=== PATIENT | female | born 1955 | race Caucasian/White ===

== ENCOUNTER 2016-12-12 11:55 | Emergency (ER) | payer OTHER ==
--- NOTE | 2016-12-12 14:13 | ER Document Report ---
ED Medical Screen (RME) - General Chief Complaint: Abdominal Pain Stated Complaint: ABDOMINAL PAIN Time Seen by Provider: 12/12/16 14:10 - Related Data Allergies/Adverse Reactions: No Known Allergies Allergy (Unverified 12/12/16 14:41) Home Medications: Current Home Medications Atorvastatin Calcium 20 mg PO QHS 12/12/16 [History] Minerals [Multimineral Plus] 1 each PO DAILY 12/12/16 [History] Valsartan [Valsartan] 80 mg PO DAILY 12/12/16 [History] Past Medical History Renal/ Medical History: Denies: Hx Peritoneal Dialysis Physical Exam - Vital signs Vitals: Temp Pulse Resp BP Pulse Ox 98.2 F 72 16 134/84 H 96 12/12/16 12:12 12/12/16 12:12 12/12/16 12:12 12/12/16 12:12 12/12/16 12:12 Course - Re-evaluation Re-evalutation: 12/12/16 14:11 Presents emerged from chief complaint of right-sided abdominal pain. States onset yesterday is been gradual intermittent about 30 minutes on and then several hours for her to come back she was able to sleep last night. She denies any nausea vomiting diarrhea flank pain or urinary symptoms. She states that her gallbladder has been removed and her appendix she thinks was removed when she had a hysterectomy 20 years ago. She is a daily drinker and heavier on the weekends denies a history of pancreatitis. No chest pain cough or shortness of breath - Vital Signs Vital signs: Temp Pulse Resp BP Pulse Ox 98.1 F 64 16 151/83 H 94 12/12/16 18:55 12/12/16 18:55 12/12/16 18:55 12/12/16 18:55 12/12/16 18:55 - Laboratory Result Diagrams: 12/12/16 14:10 12/12/16 14:10 Laboratory results interpreted by me: 12/12/16 12/12/16 12/12/16 14:10 14:10 14:10 Hgb 16.4 H Hct 47.9 H Seg Neutrophils % 78.1 H BUN 6 L Urine Ketones 20 H Doctor's Discharge - Discharge Clinical Impression: Abdominal pain Condition: Stable Disposition: HOME, SELF-CARE Instructions: Abdominal Pain ([facility]) Additional Instructions: Abdominal Pain There are many causes of abdominal pain. Pain can mean a serious problem requiring surgery (such as appendicitis). It can also be an innocent problem that goes away on its own (such as a viral infection). Often, time must pass to determine the cause of pain. The physician does not feel that hospitalization is necessary, at present. Things may change within the next 24 hours. Call the doctor or come back for re- examination if any problems occur, such as: (1) Pain that becomes more severe, steady, or becomes concentrated in one specific area. Also, pain that is more severe with movement or coughing. (2) Vomiting that persists or becomes more frequent. (3) Blood in the vomitus, urine, or bowel movements. Blood in the stool may have a tarry or black appearance. (4) Shaking chills or fever greater than 100 degrees F. (5) The abdomen becomes more distended or swollen. (6) Bowel movements cease. (7) Failure to improve as expected. Referrals: AYUSH BARBA MD [Primary Care Provider] - (In 2-3 days return for increasing worsening or new symptoms)
[2016-12-12 14:50] LABS: ABSOLUTE LYMPHOCYTES (AUTO) 1.5 10^3/uL (0.5-4.7); ABSOLUTE MONOCYTES (AUTO) 0.5 10^3/uL (0.1-1.4); ABSOLUTE NEUT (AUTO) 7.5 10^3/uL (1.7-8.2); BASOPHILS % (AUTO) 0.4 % (0-2); EOSINOPHILS % (AUTO) 0.3 % (0-6); HEMATOCRIT 47.9 % (36.0-47.0); HEMOGLOBIN 16.4 g/dL (12.0-15.5); HGB HCT DIFFERENCE 1.3; LYMPHOCYTES % (AUTO) 15.6 % (13-45); MEAN CORPUSCULAR HEMOGLOBIN 31.5 pg (27.0-33.4); MEAN CORPUSCULAR HGB CONC 34.2 g/dL (32.0-36.0); MEAN CORPUSCULAR VOLUME 92 fl (80-97); MONOCYTES % (AUTO) 5.6 % (3-13); RED BLOOD COUNT 5.22 10^6/uL (3.72-5.28); RED CELL DISTRIBUTION WIDTH 13.9 % (11.5-14.0); SEGMENTED NEUTROPHILS % (AUTO) 78.1 % (42-78); WHITE BLOOD COUNT 9.5 10^3/uL (4.0-10.5)
[2016-12-12 14:52] LABS: APPEARANCE,URINE CLEAR; BILIRUBIN,URINE NEGATIVE (NEGATIVE); GLUCOSE, URINE NEGATIVE (NEGATIVE); KETONES,URINE 20 mg/dL (NEGATIVE); LEUKOCYTE ESTERASE,URINE NEGATIVE (NEGATIVE); NITRITE,URINE NEGATIVE (NEGATIVE); PROTEIN,URINE NEGATIVE (NEGATIVE); URINE SPECIFIC GRAVITY 1.003; UROBILINOGEN,URINE NEGATIVE mg/dL (<2.0)
[2016-12-12 15:09] LABS: ALANINE AMINOTRANSFERASE 31 U/L (9-52); ALBUMIN 4.9 g/dL (3.5-5.0); ALKALINE PHOSPHATASE 100 U/L (38-126); ANION GAP 13 (5-19); ASPARTATE AMINO TRANSFERASE 24 U/L (14-36); BILIRUBIN,DIRECT 0.3 mg/dL (0.0-0.4); BILIRUBIN,TOTAL 0.8 mg/dL (0.2-1.3); BLOOD UREA NITROGEN 6 mg/dL (7-20); CALCIUM 10.1 mg/dL (8.4-10.2); CARBON DIOXIDE 27 mmol/L (22-30); CHLORIDE 101 mmol/L (98-107); CREATININE RESULT 0.61 mg/dL (0.52-1.25); GLUCOSE 89 mg/dL (75-110); LIPASE 61.4 U/L (23-300); POTASSIUM 4.3 mmol/L (3.6-5.0); SODIUM 140.8 mmol/L (137-145); TOTAL PROTEIN 7.7 g/dL (6.3-8.2)
--- NOTE | 2016-12-12 15:53 | ER Document Report ---
ED GI/ - General Information source: Patient - HPI Patient complains to provider of: Abdominal pain <JOSÉ MIGUEL KELSEY - Last Filed: 12/20/16 14:04> <ALFREDROSEANNANING - Last Filed: 12/21/16 03:22> - General Chief Complaint: Abdominal Pain Stated Complaint: ABDOMINAL PAIN Time Seen by Provider: 12/12/16 14:10 Notes: Presents emerged from chief complaint of right-sided abdominal pain. States onset yesterday is been gradual intermittent about 30 minutes on and then several hours for her to come back she was able to sleep last night. She denies any nausea vomiting diarrhea flank pain or urinary symptoms. She states that her gallbladder has been removed and her appendix she thinks was removed when she had a hysterectomy 20 years ago. She is a daily drinker and heavier on the weekends denies a history of pancreatitis. No chest pain cough or shortness of breath (JOSÉ MIGUEL KELSEY) - Related Data Allergies/Adverse Reactions: No Known Allergies Allergy (Unverified 12/12/16 14:41) Home Medications: Current Home Medications Atorvastatin Calcium 20 mg PO QHS 12/12/16 [History] Minerals [Multimineral Plus] 1 each PO DAILY 12/12/16 [History] Valsartan [Valsartan] 80 mg PO DAILY 12/12/16 [History] Past Medical History - Social History Smoking Status: Never Smoker Chew tobacco use (# tins/day): No Frequency of alcohol use: Heavy Drug Abuse: None Family History: Reviewed & Not Pertinent Renal/ Medical History: Denies: Hx Peritoneal Dialysis <JOSÉ MIGUEL KELSEY - Last Filed: 12/20/16 14:04> Review of Systems - Review of Systems Constitutional: No symptoms reported EENT: No symptoms reported Cardiovascular: No symptoms reported, See HPI. denies: Chest pain Respiratory: No symptoms reported. denies: Cough, Short of breath Gastrointestinal: No symptoms reported, Abdominal pain. denies: Diarrhea, Nausea, Vomiting Genitourinary: No symptoms reported. denies: Flank pain Female Genitourinary: No symptoms reported Musculoskeletal: No symptoms reported Skin: No symptoms reported Hematologic/Lymphatic: No symptoms reported Neurological/Psychological: No symptoms reported <JOSÉ MIGUEL KELSEY - Last Filed: 12/20/16 14:04> Physical Exam - General General appearance: Appears well, Alert In distress: None - HEENT Head: Normocephalic, Atraumatic Eyes: Normal Extraocular movements intact: Yes Pupils: PERRL - Respiratory Respiratory status: No respiratory distress Breath sounds: Normal - Cardiovascular Rhythm: Regular Heart sounds: Normal auscultation Murmur: No - Abdominal Inspection: Normal, Wounds Bowel sounds: Normal Tenderness: Tender. No: Guarding, Rebound, Other - rigidity - Back Back: Normal - Extremities General upper extremity: Normal inspection, Normal ROM General lower extremity: Normal inspection, Normal ROM - Neurological Neuro grossly intact: Yes - Psychological Associated symptoms: Normal affect, Normal mood - Skin Skin Temperature: Warm Skin Moisture: Dry Skin Color: Normal <JOSÉ MIGUEL KELSEY - Last Filed: 12/20/16 14:04> Course - Laboratory Result Diagrams: 12/12/16 14:10 12/12/16 14:10 <JOSÉ MIGUEL KELSEY - Last Filed: 12/20/16 14:04> - Laboratory Result Diagrams: 12/12/16 14:10 12/12/16 14:10 <NING SIMON - Last Filed: 12/21/16 03:22> - Re-evaluation Re-evalutation: 12/12/16 16:01 Presents emerged from chief complaint of right-sided abdominal pain. States onset yesterday is been gradual intermittent about 30 minutes on and then several hours for her to come back she was able to sleep last night. She denies any nausea vomiting diarrhea flank pain or urinary symptoms. She states that her gallbladder has been removed and her appendix she thinks was removed when she had a hysterectomy 20 years ago. She is a daily drinker and heavier on the weekends denies a history of pancreatitis. No chest pain cough or shortness of breath Patient reassessed at bedside at 1545 after labs are back. No acute laboratory abnormalities. Abdomen mild tenderness right lower quadrant without associated guarding rebound rigidity pulsatile mass or hernias. At this point patient had a hysterectomy many years ago she has no idea whether her appendix is been removed or not he does not have a gallbladder. She declines anything for pain or nausea and 0.90 and get IV and oral contrast CT to exclude the possibility of appendicitis. 12/12/16 19:46 Patient reassessed multiple times no acute abdominal guarding rebound rigidity stable labs negative CT IV and oral contrast. Patient denied wanting anything for pain or nausea. At this point him to have a follow-up with primary care physician in 2-3 days and discussed reasons for ED return sooner (NING SIMON) - Vital Signs Vital signs: Temp Pulse Resp BP Pulse Ox 98.1 F 64 16 151/83 H 94 12/12/16 18:55 12/12/16 18:55 12/12/16 18:55 12/12/16 18:55 12/12/16 18:55 - Laboratory Laboratory results interpreted by me: 12/12/16 12/12/16 12/12/16 14:10 14:10 14:10 Hgb 16.4 H Hct 47.9 H Seg Neutrophils % 78.1 H BUN 6 L Urine Ketones 20 H Discharge <JOSÉ MIGUEL KELSEY - Last Filed: 12/20/16 14:04> <NING SIMON - Last Filed: 12/21/16 03:22> - Discharge Clinical Impression: Abdominal pain Condition: Stable Disposition: HOME, SELF-CARE Instructions: Abdominal Pain ([facility]) Additional Instructions: Abdominal Pain There are many causes of abdominal pain. Pain can mean a serious problem requiring surgery (such as appendicitis). It can also be an innocent problem that goes away on its own (such as a viral infection). Often, time must pass to determine the cause of pain. The physician does not feel that hospitalization is necessary, at present. Things may change within the next 24 hours. Call the doctor or come back for re- examination if any problems occur, such as: (1) Pain that becomes more severe, steady, or becomes concentrated in one specific area. Also, pain that is more severe with movement or coughing. (2) Vomiting that persists or becomes more frequent. (3) Blood in the vomitus, urine, or bowel movements. Blood in the stool may have a tarry or black appearance. (4) Shaking chills or fever greater than 100 degrees F. (5) The abdomen becomes more distended or swollen. (6) Bowel movements cease. (7) Failure to improve as expected. Referrals: AYUSH BARBA MD [Primary Care Provider] - (In 2-3 days return for increasing worsening or new symptoms) Scribe Attestation: 12/12/16 19:46 I personally performed the services described in the documentation reviewed the documentation recorded by my scribe in my presence and it accurately and completely records my words and actions (NING SIMON) Scribe Documentation - Scribe Written by Juarez:: juarez Rondon, 12/12/2016, 1553 acting as scribe for :: Alfred <JOSÉ MIGUEL KELSEY - Last Filed: 12/20/16 14:04>
[2016-12-12 19:00] VITALS: BP 151/83
--- NOTE | 2016-12-12 19:22 | RADIOLOGY REPORT (SQ) ---
EXAM DESCRIPTION: CT ABD/PELVIS WITH IV ORAL COMPLETED DATE/TIME: 12/12/2016 6:57 pm REASON FOR STUDY: rlq pain COMPARISON: None. TECHNIQUE: CT scan of the abdomen and pelvis performed with intravenous and oral contrast using rocco shelbie scanning technique with dynamic intravenous contrast injection. Images reviewed with lung, soft t issue, and bone windows. Reconstructed coronal and sagittal MPR images reviewed. Delayed images for e valuation of the urinary system also acquired. All images stored on PACS. All CT scanners at this facility use dose modulation, iterative reconstruction, and/or weight based d osing when appropriate to reduce radiation dose to as low as reasonably achievable (ALARA). [facility]: Dose Right [facility]: CareDose [facility]: Dose Right [facility]: Teradose 4D [facility]: Alorum CONTRAST TYPE AND DOSE: contrast/concentration: Isovue 370.00 mg/ml; Total Contrast Delivered: 77.0 ml; Total Saline Delivered: 67.0 ml RENAL FUNCTION: Creatinine 0.61 RADIATION DOSE: Up-to-date CT equipment and radiation dose reduction techniques were employed. CTDIv ol: 8.4 - 12.0 mGy. DLP: 975 mGy-cm. . LIMITATIONS: None. FINDINGS: LOWER CHEST: No significant findings. No nodules or infiltrates. LIVER: Normal size. No masses. No dilated ducts. SPLEEN: Normal size. No focal lesions. PANCREAS: No masses. No significant calcifications. No adjacent inflammation or peripancreatic fluid collections. Pancreatic duct not dilated. GALLBLADDER: Status post cholecystectomy ADRENAL GLANDS: No significant masses or asymmetry. RIGHT KIDNEY AND URETER: No solid masses. No significant calcifications. No hydronephrosis or hyd roureter. LEFT KIDNEY AND URETER: No solid masses. No significant calcifications. No hydronephrosis or hydr oureter. AORTA AND VESSELS: No aneurysm. No dissection. There is ectasia of the abdominal aorta and iliac ves sels with vascular calcifications. Renal arteries, SMA, celiac without stenosis. RETROPERITONEUM: No retroperitoneal adenopathy, hemorrhage or masses. BOWEL AND PERITONEAL CAVITY: No obstruction. No visualized masses. No free fluid. No inflammatory ch anges or thickening of bowel wall. APPENDIX: Status post appendectomy PELVIS: No significant masses. Normal bladder. No free fluid. ABDOMINAL WALL: No masses. No hernias. BONES: No significant or acute findings. OTHER: No other significant finding. IMPRESSION: NO SIGNIFICANT OR ACUTE FINDINGS IN THE ABDOMEN OR PELVIS. TECHNICAL DOCUMENTATION: JOB ID: [id number] Quality ID # [id number]: Final reports with documentation of one or more dose reduction techniques (e.g., Au tomated exposure control, adjustment of the mA and/or kV according to patient size, use of iterative reconstruction technique) 2010 [employer]- All Rights Reserved
== END 2016-12-12 20:04 | disposition home or self-care (01) ==
LOC: ER 11:55
DX: R10.9 Unspecified abdominal pain (principal); Z79.899 Other long term (current) drug therapy
CPT/HCPCS: 36415; 74177; 80053; 81001; 83690; 85025; 99284